=== PATIENT | female | born 1995 | race Caucasian/White ===

== ENCOUNTER 2018-01-18 00:01 | Emergency (ER) | payer MEDICAID ==
[~2018-01-18] VITALS: Ht 160 cm; Wt 54.5 kg
[2018-01-18 00:05] VITALS: BP 141/100
[2018-01-18] MEDS ORDERED: HYDROcodone/acetaminophen 5mg/325mg tablet PO ONE (00:15)
[2018-01-18] MEDS ORDERED: HYDR-4353 PO (02:03)
[2018-01-18] MEDS ORDERED: HYDROcodone/acetaminophen 10/325mg tab PO PRN (02:05)
== END 2018-01-18 02:24 | disposition home or self-care (01) ==
LOC: ER 00:02
DX: S80.02XA Contusion of left knee, initial encounter (principal); J45.909 Unspecified asthma, uncomplicated; F17.200 Nicotine dependence, unspecified, uncomplicated; Z88.2 Allergy status to sulfonamides; Z79.899 Other long term (current) drug therapy; W19.XXXA Unspecified fall, initial encounter; Y93.89 Activity, other specified; Y92.89 Other specified places as the place of occurrence of the external cause; Y99.8 Other external cause status
CPT/HCPCS: 73564; 73630; 99283

== ENCOUNTER 2018-08-02 02:06 | Emergency (ER) | payer MEDICAID ==
[~2018-08-02] VITALS: Ht 160 cm; Wt 56.8 kg
[2018-08-02 02:13] VITALS: BP 139/9
[2018-08-02] MEDS ORDERED: amox tr/potassium clavulanate 875/125mg TAB PO ONE (02:20)
[2018-08-02] MEDS ORDERED: acetaminophen 325mg tablet PO ONE (02:20)
[2018-08-02] MEDS ORDERED: AMOX-422 PO (02:21)
[2018-08-03] MEDS ORDERED: ONDA8TAB6 PO (02:00)
[2018-08-03] MEDS ORDERED: CLIN150C8 PO (02:00)
== END 2018-08-02 02:37 | disposition home or self-care (01) ==
LOC: ER 02:06
DX: H66.93 Otitis media, unspecified, bilateral (principal); R22.0 Localized swelling, mass and lump, head; J45.909 Unspecified asthma, uncomplicated; Z88.2 Allergy status to sulfonamides; Z88.8 Allergy status to other drugs, medicaments and biological substances; Z79.899 Other long term (current) drug therapy
CPT/HCPCS: 99283

== ENCOUNTER 2018-08-02 23:53 | Emergency (ER) | payer MEDICAID ==
[~2018-08-02] VITALS: Ht 160 cm; Wt 49.0 kg
[~2018-08-02 23:53] MED LIST: AMOX-422 PO
[2018-08-03 00:05] VITALS: BP 144/104
[2018-08-03] MEDS ORDERED: CLIN150C8 PO (02:00)
[2018-08-03] MEDS ORDERED: ONDA8TAB6 PO (02:00)
== END 2018-08-03 02:09 | disposition home or self-care (01) ==
LOC: ER 23:54
DX: H66.93 Otitis media, unspecified, bilateral (principal); J45.909 Unspecified asthma, uncomplicated; Z88.2 Allergy status to sulfonamides; Z88.8 Allergy status to other drugs, medicaments and biological substances; Z79.899 Other long term (current) drug therapy
CPT/HCPCS: 99283

== ENCOUNTER 2019-01-15 18:30 | Emergency (ER) | payer MEDICAID ==
[~2019-01-15] VITALS: Ht 160 cm; Wt 44.6 kg
[~2019-01-15 18:30] MED LIST changes: -AMOX-422 PO; +CLIN150C8 PO; +ONDA8TAB6 PO
[2019-01-15 18:38] VITALS: BP 110/90
[2019-01-15] MEDS ORDERED: LORA-269 PO (20:09)
== END 2019-01-15 20:18 | disposition home or self-care (01) ==
LOC: ER 18:31
DX: F10.129 Alcohol abuse with intoxication, unspecified (principal); J45.909 Unspecified asthma, uncomplicated; Z88.2 Allergy status to sulfonamides; Z88.8 Allergy status to other drugs, medicaments and biological substances; Z79.899 Other long term (current) drug therapy; Y90.9 Presence of alcohol in blood, level not specified
CPT/HCPCS: 99283

== ENCOUNTER 2021-04-21 17:39 | Emergency (ER) | payer MEDICAID ==
[~2021-04-21] VITALS: Ht 160 cm; Wt 65.0 kg
[~2021-04-21 17:39] MED LIST changes: +LORA-269 PO
[2021-04-21] MEDS ORDERED: AMOX-117 PO (18:44)
[2021-04-21] MEDS ORDERED: IBUP-1986 PO (18:44)
[2021-04-21] MEDS ORDERED: amox tr/potassium clavulanate 875/125mg TAB PO ONE (18:50)
[2021-04-21] MEDS ORDERED: ibuprofen tablet 400 MG TABLET PO ONE (18:50)
[2021-04-21 19:28] VITALS: BP 118/95
== END 2021-04-21 19:31 | disposition home or self-care (01) ==
LOC: ER 17:40
DX: S41.131A Puncture wound without foreign body of right upper arm, initial encounter (principal); J45.909 Unspecified asthma, uncomplicated; Z72.89 Other problems related to lifestyle; Z88.1 Allergy status to other antibiotic agents; Z88.8 Allergy status to other drugs, medicaments and biological substances; Z79.2 Long term (current) use of antibiotics; Z79.899 Other long term (current) drug therapy; W55.01XA Bitten by cat, initial encounter; Y93.89 Activity, other specified; Y92.89 Other specified places as the place of occurrence of the external cause; Y99.8 Other external cause status
CPT/HCPCS: 73110; 99283

== ENCOUNTER 2021-07-09 19:03 | Emergency (ER) | payer MEDICAID ==
[~2021-07-09] VITALS: Ht 160 cm; Wt 62.7 kg
[~2021-07-09 19:03] MED LIST changes: +IBUP-1986 PO
[2021-07-09 19:19] VITALS: BP 132/90
== END 2021-07-09 21:41 | disposition home or self-care (01) ==
LOC: ER 19:05
DX: J03.90 Acute tonsillitis, unspecified (principal); J45.909 Unspecified asthma, uncomplicated; Z72.89 Other problems related to lifestyle; Z88.2 Allergy status to sulfonamides; Z88.8 Allergy status to other drugs, medicaments and biological substances; Z79.2 Long term (current) use of antibiotics; Z79.899 Other long term (current) drug therapy
CPT/HCPCS: 87081; 87880; 99283

== ENCOUNTER 2021-10-05 00:13 | Emergency (ER) | payer MEDICAID ==
[~2021-10-05] VITALS: Ht 160 cm; Wt 63.6 kg
[2021-10-05 00:35] VITALS: BP 116/77
== END 2021-10-05 01:59 | disposition left against medical advice (07) ==
LOC: ER 00:14
DX: N93.9 Abnormal uterine and vaginal bleeding, unspecified (principal); Z53.21 Procedure and treatment not carried out due to patient leaving prior to being seen by health care provider

== ENCOUNTER 2022-05-21 11:34 | Emergency (ER) | payer MEDICAID ==
[~2022-05-21] VITALS: Ht 160 cm; Wt 77.3 kg
[2022-05-21 12:07] VITALS: BP 101/61
== END 2022-05-21 13:11 | disposition home or self-care (01) ==
LOC: ER 11:34
DX: F15.10 Other stimulant abuse, uncomplicated (principal); J45.909 Unspecified asthma, uncomplicated; F41.9 Anxiety disorder, unspecified; F32.9 Major depressive disorder, single episode, unspecified; F10.10 Alcohol abuse, uncomplicated; Z88.0 Allergy status to penicillin; Z88.2 Allergy status to sulfonamides; Z88.8 Allergy status to other drugs, medicaments and biological substances; Z79.899 Other long term (current) drug therapy; Y90.9 Presence of alcohol in blood, level not specified
CPT/HCPCS: 99281

== ENCOUNTER 2022-12-18 17:58 | Emergency (ER) | payer MEDICAID ==
[~2022-12-18] VITALS: Ht 160 cm; Wt 68.0 kg
[~2022-12-18 17:58] MED LIST changes: +CLIN-214 PO; -CLIN150C8 PO
[2022-12-18 18:15] VITALS: BP 115/76; PULSE 96; TEMP 98.7; O2SAT 100
[2022-12-18] MEDS ORDERED: CLIN300C54 PO (18:33)
[2022-12-18] MEDS ORDERED: IBUP-1985 PO (18:33)
[2022-12-18] MEDS ORDERED: SODI30SP3 BOTHNARES (18:33)
[2022-12-18] MEDS ORDERED: LORA10TA65 PO (18:33)
[2022-12-18 18:35] VITALS: RESP 18
--- NOTE | 2022-12-18 19:04 | NUR ---
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
== END 2022-12-18 18:45 | disposition home or self-care (01) ==
LOC: ER 17:59
DX: H65.01 Acute serous otitis media, right ear (principal); J45.909 Unspecified asthma, uncomplicated; Z88.0 Allergy status to penicillin; Z88.2 Allergy status to sulfonamides; Z79.2 Long term (current) use of antibiotics; Z79.1 Long term (current) use of non-steroidal anti-inflammatories (NSAID); Z79.899 Other long term (current) drug therapy
CPT/HCPCS: 99283

== ENCOUNTER 2023-10-13 17:24 | Emergency (ER) | payer MEDICAID ==
[~2023-10-13] VITALS: Ht 167.6 cm; Wt 66.8 kg
[~2023-10-13 17:24] MED LIST changes: +IBUP-1985 PO; +LORA10TA65 PO; +SODI30SP3 BOTHNARES
[2023-10-13 17:32] VITALS: BP 110/78; PULSE 84; RESP 18; O2SAT 96
[2023-10-13] MEDS ORDERED: FAMO-129 PO (17:43)
[2023-10-13] MEDS ORDERED: PRED20TA PO (17:43)
[2023-10-13] MEDS ORDERED: TRIA15CR61 TOP (17:43)
[2023-10-13] MEDS: diphenhydrAMINE 50 mg/ml inj IM ONE (17:49)
[2023-10-13] MEDS: dexamethasone sod phosphate 10mg/ml inj IM STA (17:49)
[2023-10-13] MEDS: famotidine 20mg tablet PO ONE (17:50)
[2023-10-13 17:54] VITALS: TEMP 97.2
== END 2023-10-13 17:56 | disposition home or self-care (01) ==
LOC: ER 17:25
DX: L50.9 Urticaria, unspecified (principal); J45.909 Unspecified asthma, uncomplicated; F41.9 Anxiety disorder, unspecified; F32.A Depression, unspecified; Z88.0 Allergy status to penicillin; Z88.2 Allergy status to sulfonamides; Z79.1 Long term (current) use of non-steroidal anti-inflammatories (NSAID); Z79.2 Long term (current) use of antibiotics; Z79.899 Other long term (current) drug therapy
CPT/HCPCS: 96372; 99284; J1100; J1200